=== PATIENT | female | born 1955 | race Caucasian/White ===

== ENCOUNTER → 2023-07-30 | Outpatient (CLI) | payer MEDICARE, OTHER ==
[~2023-07-30] MED LIST: ALBUTEROL0.09 MG/A2 IH; ALLEGRA ALLERG180 M1 PO; ATIVAN1 MG PO; AZITHROMYCIN500 MG PO; BACTRIM DS 8001 TA1 PO; DULE1ARO1 INH; GENTAMICIN3.5 GM T; LISINOPRIL10 M1 PO; MEDROL DOSEPAK4 MG PO; METFORMIN ER500 MG PO; NICOTINE TRANSD1 TDM TD; PREDNISONE10 MG PO; PROAIR HFA8.5 GM INH; TOBRADEX 0.1%-0.5 ML OPH; TRIDERM0.1% T; VIBRAMYCIN100 MG PO
== END | disposition home or self-care (01) ==
LOC: RESCLI 14:29
PROVIDERS: ATTEND Family Medicine
DX: J45.909 Unspecified asthma, uncomplicated (principal); I10 Essential (primary) hypertension; M19.90 Unspecified osteoarthritis, unspecified site; K21.9 Gastro-esophageal reflux disease without esophagitis; E78.5 Hyperlipidemia, unspecified; Z79.899 Other long term (current) drug therapy; Z88.8 Allergy status to other drugs, medicaments and biological substances; Z98.890 Other specified postprocedural states